=== PATIENT | female | born 1995 | race Caucasian/White ===

== ENCOUNTER 2018-05-18 19:39 | Emergency (ER) | payer OTHER ==
[~2018-05-18] VITALS: Ht 160 cm; Wt 81.8 kg
[2018-05-18 19:40] VITALS: BP 127/84; TEMP 98.1
[2018-05-18] MEDS ORDERED: BIRTH CONTROL PO (19:43)
[2018-05-18] MEDS ORDERED: NORCO 325 MG-51 TAB PO (20:27)
[2018-05-18] MEDS ORDERED: ZOFRAN ODT4 MG PO (20:42)
[2018-05-18 20:45] VITALS: PULSE 80
== END 2018-05-18 20:46 | disposition home or self-care (01) ==
LOC: COL.ER 19:39
DX: H65.91 Unspecified nonsuppurative otitis media, right ear (principal); H69.91 Unspecified Eustachian tube disorder, right ear